=== PATIENT | male | born 1960 | race Caucasian/White ===

== ENCOUNTER 2024-09-07 17:49 | Inpatient (IN) | payer SELFPAY ==
[~2024-09-07] VITALS: Ht 172.7 cm; Wt 76.2 kg
[~2024-09-07 17:49] MED LIST: ASPI-1264 PO; CARV3.122 PO; FURO40TA4 PO; GABA300C PO; LISI2.5T14 PO; SPIR25TA5 PO
[2024-09-07] MEDS: NORepinephrine 8mg/ 250ml NS 250 ML IV PRN (18:07)
[2024-09-07 18:09] LABS: BASOPHILS # (AUTO) 0.1 X10'3 (0-0.2); BASOPHILS % (AUTO) 0.8 % (0-1); EOSINOPHILS # (AUTO) 0.1 X10'3 (0-0.9); EOSINOPHILS % (AUTO) 0.7 % (0-6); HEMATOCRIT 52.4 % (42.0-52.0); LYMPHOCYTES # (AUTO) 1.7 X10'3 (1.1-4.8); LYMPHOCYTES % (AUTO) 17.9 % (21-51); MEAN CORPUSCULAR HEMOGLOBIN 29.1 PG (27.0-31.0); MEAN CORPUSCULAR HGB CONC 32.4 g/dL (33.0-36.5); MEAN CORPUSCULAR VOLUME 89.8 FL (78-98); MEAN PLATELET VOLUME 8.1 FL (7.4-10.4); MONOCYTES # (AUTO) 0.8 X10'3 (0-0.9); NEUTROPHILS % (AUTO) 72.6 % (42-75); PLATELET COUNT 267 X10'3 (140-440); RED BLOOD COUNT 5.83 X10'6 (4.70-6.10); RED CELL DISTRIBUTION WIDTH 17.1 % (11.5-14.5); WHITE BLOOD COUNT 9.6 X10'3 (4.5-11.0)
[2024-09-07 18:28] LABS: ALANINE AMINOTRANSFERASE 76 U/L (12-78); ALBUMIN 3.5 G/DL (3.4-5.0); ALKALINE PHOSPHATASE 122 IU/L (46-116); ANION GAP 19 (8-16); ASPARTATE AMINO TRANSFERASE 79 U/L (10-37); BILIRUBIN,TOTAL 3.4 MG/DL (0.1-1.0); BLOOD UREA NITROGEN 39 MG/DL (7-18); BUN/CREATININE RATIO 16.3 (10.0-20.0); CALCIUM 8.7 MG/DL (8.5-10.1); CHLORIDE 102 MMOL/L (99-107); GLUCOSE 115 MG/DL (70-104); POTASSIUM 3.6 MMOL/L (3.5-5.1); SODIUM 140 MMOL/L (135-145); eCRCL 31 ML/MIN; eGFR 28 ML/MIN
--- NOTE | 2024-09-07 18:33 | Physician Documentation ---
History of Present Illness ~ Chief Complaint: ALOC Stated Complaint: NSTEMI Time Seen by MD: 18:27 Source: EMS HPI 64-year-old male no known medical history presenting for altered mental status. He was found down by his family. Unknown just downtime. Medication Reconciliation Allergies: Coded Allergies: No Known Allergies (Unverified , 09/07/24) Miscellaneous Medications Home Med List (No Home Medications), (Reported) Review of Systems Unable to obtain complete ROS: altered mental status Physical Exam Vital Signs: RN Vital Signs have been reviewed: Yes, Temperature: 99.8, Source: Bladder, Heart Rate: 107, Respiratory Rate: 35, BP: 114/96, Pulse Oximetry: 98, Weight: 77.270 Oxygen Flow Rate: 15.0 Physical Exam Toxic, ashen cyanotic Cardiopulmonary clear to auscultation bilaterally No murmur Right upper quadrant abdominal tenderness to palpation No guarding no rebound Lower extremity mottling Procedures Central Line Lumen: triple Central Line Procedure: betadine prep, sterile drapes applied, sterile dressing applied Position: subclavian (L) Anesthesia: local Complications: none Post Position: sutured, good blood return, position confirmed w/ CXR Tolerated Procedure Well?: yes, no complications Progress Progress Note Independently interpreted labs lactic acidosis Bedside ultrasound showing severe heart failure EF 10% 6:58 p.m. patient now on levo blood pressure improved he is now awake and alert and oriented. He is denying any chest pain or shortness of breath. He is com plaining of abdominal pain that has been ongoing the last several days. He is unable to have any bowel movement which is new for him 7:06 p.m. discussed with patient's son he is able to provide further history. He states that the patient has remote history of methamphetamine use and known history of heart failure. The patient's mother 3 months ago and ever since then the patient's son reports that he has been on a Marinelli not take care of himself not taking any medications and likely using methamphetamine Results/Orders Reviewed/noted all lab results: Yes Results/Orders Orders - LOGAN NESS MD Monitor (09/07/24 17:56) Saline Lock (09/07/24 17:56) Oxygen (09/07/24 17:56) Electrocardiogram (09/07/24 17:56) Culture Blood (09/07/24 17:56) Chest,Single View (09/07/24 17:56) Straight Cath For Urine Sample (09/07/24 17:56) Abg (Arterial Blood Gas) (09/07/24 17:56) Accucheck (09/07/24 ) * (A) Hutchinson- Protocol * Q12H@07,19 (09/07/24 18:19) Ultrasound Of Abdomen (09/07/24 18:30) Echocardiogram (09/07/24 ) Ct Chest Abdomen Pelvis (09/07/24 18:31) Completed Orders - LOGAN NESS MD Cbc/Diff (09/07/24 17:56) PBNP (09/07/24 17:56) CMP (09/07/24 17:56) Hs Troponin I W Calculations (09/07/24 17:56) Hs Troponin I W Calculations (09/07/24 19:56) Hs Troponin I W Calculations (09/07/24 20:56) Chest,Single View (09/07/24 17:56) Procalcitonin (09/07/24 17:56) BMP (09/07/24 17:56) Lacticsepsis (09/07/24 17:56) CK (09/07/24 17:56) Drug Screen, Urine (09/07/24 17:56) Norepinephrine 8mg/ 250ml Ns (Norepineph (09/07/24 18:05) Normal Saline 1000ml (Sodium Chloride 10 (09/07/24 18:22) Ultrasound Of Abdomen (09/07/24 18:30) Echocardiogram (09/07/24 ) Ct Chest Abdomen Pelvis (09/07/24 18:31) Lactic,2hr (09/07/24 19:40) Lipase (09/07/24 17:58) Ua W/Microscopic, Cult If Ind (09/07/24 19:15) Vital Signs 09/07/24 09/07/24 09/07/24 09/07/24 17:53 18:07 18:23 18:32 Temp 99.8 Pulse 115 107 Resp 35 B/P (MAP) 87/73 114/96 (102) Pulse Ox 98 98 O2 Delivery Non-Rebreather O2 Flow Rate 16 15.0 FiO2 N/A 09/07/24 18:44 Resp 19 B/P (MAP) Laboratory Tests Test 09/07/24 17:58 09/07/24 18:02 09/07/24 18:46 09/07/24 19:15 White Blood Count 9.6 Red Blood Count 5.83 Hemoglobin 17.0 Hematocrit 52.4 H Mean Corpuscular Volume 89.8 Mean Corpuscular Hemoglobin 29.1 Mean Corpuscular Hemoglobin Concent 32.4 L Red Cell Distribution Width 17.1 H Platelet Count 267 Mean Platelet Volume 8.1 Neutrophils (%) (Auto) 72.6 Lymphocytes (%) (Auto) 17.9 L Monocytes (%) (Auto) 8.0 Eosinophils (%) (Auto) 0.7 Basophils (%) (Auto) 0.8 Neutrophils # (Auto) 7.0 Lymphocytes # (Auto) 1.7 Monocytes # (Auto) 0.8 Eosinophils # (Auto) 0.1 Basophils # (Auto) 0.1 CBC Comment Sodium Level 140 Potassium Level 3.6 Chloride Level 102 Carbon Dioxide Level 19.0 L Anion Gap 19 H Blood Urea Nitrogen 39 H Creatinine 2.40 H Estimated GFR/1.73 m2 28 BUN/Creatinine Ratio 16.3 Glucose Level 115 H Lactic Acid Level 9.4 *H Calcium Level 8.7 Total Bilirubin 3.4 H Aspartate Amino Transf (AST/SGOT) 79 H Alanine Aminotransferase (ALT/SGPT) 76 Alkaline Phosphatase 122 H Total Creatine Kinase 192 Troponin I High Sensitivity 139 *H Pro-B-Type Natriuretic Peptide 27495 H Total Protein 7.0 Albumin 3.5 Globulin 3.5 Albumin/Globulin Ratio 1.0 L Lipase 24 Procalcitonin 0.27 Chemistry Comments Glucometer 95 Blood Gas Specimen Type Arterial Blood Gas Puncture Site Rr O2 Saturation 99.6 H Arterial Blood pH (Temp corrected) 7.321 L Arterial Blood pCO2 (Temp correct) 26.1 L Arterial Blood pO2 (Temp corrected) 318.3 *H Arterial Blood PO2/FiO2 Ratio 3.13 Arterial Blood HCO3 13.0 L Arterial Blood Base Excess -10.5 L Arterial Blood Oxyhemoglobin 99.1 H Arterial Blood Carboxyhemoglobin 0.3 L Arterial Blood Methemoglobin 0.2 Arterial Blood Deoxyhemoglobin 0.4 Juan Manuel Test Modified Blood Gas Hemoglobin 17.2 Blood Gas Temperature 38.1 Blood Gas Modality Nrb FiO2 100.0 Blood Gas Critical Value Called To Dr. arceo Urine Specimen Description Hutchinson cath Urine Color Yellow Urine Clarity Slightly cloudy Urine pH 6.0 Urine Specific Almond >=1.030 Urine Protein >=300 H Urine Glucose (UA) 100 H Urine Ketones Trace H Urine Occult Blood Large H Urine Nitrite Negative Urine Bilirubin Moderate Urine Urobilinogen 4.0 H Urine Leukocyte Esterase Negative Urine RBC Tntc Urine WBC 5-10 H Urine Squamous Epithelial Cells Few Urine Amorphous Urates 1+ Urine Bacteria 2+ Urine Hyaline Casts 0-3 Urine Mucus Urine Culture Indicated Indicated Volume Urine Centrifuged 10 ml Urine Comment Urine Opiates Screen Negative Urine Methadone Screen Negative Urine Fentanyl Screen Negative Urine Barbiturates Screen Negative Urine Phencyclidine Screen Negative Urine Amphetamines Screen Positive Urine Benzodiazepines Screen Negative Urine Cocaine Screen Negative Urine Cannabinoids Screen Negative Drug Screen Comment Test 09/07/24 19:36 Troponin I High Sensitivity 139 *H Troponin I High Sens Percent Delta 0 Troponin I Hi Sens Absolute Change 0 Microbiology Date/Time Source Procedure Growth Status 09/07/24 18:17 Blood Iv Start Blood Culture - Preliminary NEGATIVE (LESS THAN 24 HOURS) Resulted EKG/XRAY/CT/US/VASC/MRI EKG : Additional Comment EKG independently interpreted by myself [id number] indication altered mental status Sinus tachycardia with interventricular conduction delay, anterior ST-elevation Medical Decision Making Findings CARE THE PATIENT WAS TRANSFERRED TO NE FROM DR. NESS AT 6:50 P.M.. PATIENT IS CRITICALLY ILL SECONDARY TO SEVERE ACUTE ON CHRONIC SYSTOLIC HEART FAILURE. PATIENT HAS RECEIVED ZOSYN IV ANTIBIOTICS FOR POSSIBLE SEPSIS. PATIENT WAS GIVEN 1 L OF NORMAL SALINE. PATIENT IS ALSO ON A LEVOPHED DRIP AND HAS A CENTRAL LINE. 7:45 P.M.: CASE DISCUSSED WITH THE BLOOD BANK ASSISTANT. HE WILL SEE AND ADMIT THE PATIENT. 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 mechanic Admission Level of Care: Critcal Care Impression: Primary Impression: Systolic heart failure Qualified Codes: I50.23 - Acute on chronic systolic (congestive) heart failure Additional Impressions: Metabolic encephalopathy Renal failure Qualified Codes: N17.9 - Acute kidney failure, unspecified Referrals: NO PRIMARY CARE PROVIDER (PCP) Education Educated: Patient Educated regarding: diagnosis, treatment Critical Care Note Total Time (mins): 45 Critical Care Note The very real possibility of a deterioration of this patient's condition required the highest level of my preparedness for sudden, emergent intervention. I provided critical care services, which included medication orders, frequent reevaluations of the patient's condition and response to treatment, ordering and reviewing test results, and discussing the case with various consultants. Excludes time spent performing separately billable procedures. The critical care time associated with the care of the patient was 45 minutes in the management of cardiogenic shock Signature Scribe Signature: NO SCRIBE Attestation: NO LOGAN CANTU MD September 07, 2024 18:33 ROBBI STEEL MD September 07, 2024 20:19
[2024-09-07 18:34] LABS: CREATINE KINASE 192 U/L (39-308); PRO BRAIN NATRIURETIC PEPTIDE 20282 PG/ML (0-125)
[2024-09-07] MEDS: normal saline 1000ml 1,000 ML IV STA (18:35)
[2024-09-07 18:50] LABS: ABG BASE EXCESS -10.5 mmol/L (-2.0-3.0); ABG OXYGEN SATURATION 99.6 % (94.0-98.0); ABG PCO2 (T) 26.1 mmHg (35.0-48.0); ABG PH (T) 7.321 (7.350-7.450); ABG PO2 (T) 318.3 mmHg (83.0-108.0); ALLEN'S TEST Modified; FCOHb 0.3 % (0.5-1.5); FHHb 0.4 % (0.0-5.0); FMetHb 0.2 % (0.0-1.5); FO2Hb 99.1 % (94.0-98.0); MODE NRB; PATIENT TEMPERATURE 38.1; TOTAL HEMOGLOBIN 17.2 G/dl (13.5-17.5)
--- NOTE | 2024-09-07 18:55 | RADIOLOGY REPORT ---
EXAM: DI CHEST,SINGLE VIEW REASON FOR EXAM: CP TECHNIQUE: 1 view of the chest COMPARISON: None FINDINGS/IMPRESSION: LUNGS: Central pulmonary vascular congestion. Peripheral interstitial edema. MEDIASTINUM: Mild cardiomegaly. BONES: No acute osseous abnormality OTHER: Left internal jugular central venous catheter extending into the left brachiocephalic vein
--- NOTE | 2024-09-07 19:38 | HISTORY AND PHYSICAL ---
History & Physical - Short Providers to CC ~ History of Present Illness Chief Complain & History Patient is a 64 year old male with history of heart disease came to the hospital with shortness of breath and abdominal pain. In the ER he was hypotensive with systolic blood pressure of 60s and receive one liter of normal saline and started on levophed. Patient stated that he has not taken his medications for over a year. Patients smokes meth. In the ER had lactate acid of 9.4 and BNP of 20,000 . stat echocardiogram showed EF of 5%. Patient had central line in the left subclavian placed and has a Hutchinson catheter with minimal urine output. He has received zosyn.ABGis 7.32/ and PCT is negative. Allergies: Coded Allergies: No Known Allergies (Unverified , 09/07/24) Family History Patient History: Patient reports no known family medical history. Exam Last recorded Lab results: 09/07/24 1758 09/07/24 1758 Vitals: Vital Signs Date Time Temp Pulse Resp B/P (MAP) Pulse Ox O2 Delivery O2 Flow Rate FiO2 09/07/24 18:44 19 09/07/24 18:32 99.8 107 98 15.0 09/07/24 18:23 Non-Rebreather N/A Other: He is AAO, NAD. Advance Care Planning Advanced Care planning: Add on additional 30 min Problem\Assessment\Plan Additional Plan A/ -Acute decompensation of HFrEF. LVEF is 5% -Shock: likely cardiogenic: r/o sepsis although less likely -Oliguric WALLY: -Meth abuse -Elevated lactate: 9.4 -Abdominal pain -Medical non compliance P/ -admit to the ICU -Levophed and keep MAP>65 -Consider adding Dobutamine -follow up on the abdominal ultrasound -obtain UA -monitor the renal function, urine output and electrolytes -continue zosyn -follow up on the cultures including blood cultures and urine culture -check lipase -PPI -Hep SC -Cardiology consult in am -Trend Trop and lactate Patient was seen through remote audio-visual assessment through HIPAA compliant setup. All labs, flow sheets and images reviewed and discussed by the bedside nurse who was present during the visit. CC time 60 minutes. JYOTI NEFF MD September 07, 2024 19:38
[2024-09-07] MEDS: piperacillin/tazo 4.5gm/100ml 100 ML IV STA (19:39)
[2024-09-07] MEDS ORDERED: ondansetron/PF 4mg/2ml inj IV PRN (19:40)
[2024-09-07] MEDS: LidoCAINE 2% Topical Jelly 11mL syringe (UROJET) TOP ONE (19:43)
[2024-09-07 20:25] LABS: BILIRUBIN,URINE MODERATE (Neg); CLARITY,URINE SLIGHTLY CLOUDY (Clear); COLOR,URINE YELLOW (Yellow); GLUCOSE, URINE 100 mg/dl (Neg); KETONES,URINE TRACE mg/dl (Neg); LEUKOCYTE ESTERASE ,URINE NEGATIVE (Neg); OCCULT BLOOD,URINE LARGE (Neg); PROTEIN,URINE >=300 mg/dl (Neg)
[2024-09-07 20:27] LABS: LIPASE 24 U/L (16-77)
[2024-09-07 20:32] LABS: NITRITES, URINE NEGATIVE (Neg); UA COLLECTION TYPE FOLEY CATH
[2024-09-07 20:36] LABS: AMORPHOUS URATES 1+; BACTERIA,URINE 2+ /HPF (Neg); HYALINE CASTS 0-3 /LPF (NEGATIVE); RBC,URINE TNTC /HPF (0-2); SQUAMOUS EPITHELIAL CELL,UR FEW /LPF (FEW)
[2024-09-07 20:38] LABS: URINE AMPHETAMINE SCREEN POSITIVE (Neg); URINE BARBITUATE SCREEN NEGATIVE (Neg); URINE BENZODIAZEPINES SCREEN NEGATIVE (Neg); URINE CANNABINOID SCREEN NEGATIVE (Neg); URINE COCAINE SCREEN NEGATIVE (Neg); URINE METHADONE SCREEN NEGATIVE (Neg); URINE OPIATE SCREEN NEGATIVE (Neg); URINE PHENCYCLIDINE SCREEN NEGATIVE (Neg)
[2024-09-07] MEDS ORDERED: NO HOME MEDS (21:00)
--- NOTE | 2024-09-07 21:14 | RADIOLOGY REPORT ---
EXAM: CT CT CHEST ABDOMEN PELVIS INDICATION: abdominal pain TECHNIQUE: Volumetric multidetector CT images of the chest, abdomen and pelvis were obtained after th e administration of IV contrast. All CT scans at this facility use dose modulation, iterative reconst ruction, and/or weight based dosing when appropriate to reduce radiation dose to as low as reasonably achievable. COMPARISON: None FINDINGS: Chest: The thyroid gland is unremarkable. There is air within the venous structures of the anterior lower n shirley and upper chest and within the left brachiocephalic vein. Left-sided subclavian approach central venous catheter is noted terminating over the proximal SVC. Minimal nondependent air within the right ventricle. Moderate cardiomegaly. No evidence of aortic aneurysm. Mild dilatation of the pulmonary trunk up to 3 3 mm which may be seen with pulmonary arterial hypertension. Mediastinal lymphadenopathy measuring up to 1 cm which may be reactive/neoplastic. No pneumothorax. Trace right-sided pleural effusion. Mild emphysematous changes of bilateral lungs. d ependent and Scattered bilateral lung atelectasis. Patchy ground-glass opacities of bilateral upper lobes. Calcified granuloma within the right middle lobe. Minimal body wall edema. No destructive osseous lesions are noted. Abdomen and pelvis: Hyperplasia of the left adrenal gland. Otherwise, Liver, spleen, and adrenal glands are unremarkable . There is gallbladder wall thickening with pericholecystic edema. Possible sludge within the gallbla dder. Trace ascites limits evaluation for acute pancreatitis. There is bilateral perinephric fat stranding. No hydronephrosis bilaterally. Urinary bladder is decom pressed with Hutchinson catheter in place. Focus of air within the Urinary bladder which is most likely i atrogenic. Prostate measures 3 x 3.6 x 3 cm. Mild gastric wall thickening. Mild wall Thickening of proximal small bowel loops. The remainder of th e small bowel loops unremarkable. Appendix is not definitely visualized. Moderate to large amount of fecal material within the colon. Wall thickening of the ascending colon with rectal wall thickening. Trace ascites. No evidence of intraperitoneal free air. No evidence of aortic aneurysm. Mild atherosclerotic calcification of the aorta and bilateral iliacs. No significant lymphadenopathy. Mild body wall edema. Moderate right hydrocele. No destructive osseous lesions noted. IMPRESSION: Mild body wall edema. Patchy ground-glass Opacities of bilateral upper lobes which may represent infectious/ inflammatory p rocess. Mild emphysematous changes of the lungs with trace right-sided pleural effusion and scattered bilater al lung atelectasis. Wall thickening of the ascending colon and rectum. Correlate for colitis. Moderate to large amount of fecal material within the colon. Trace ascites. Sludge within the gallbladder with gallbladder wall thickening and significant pericholecystic edema. If there is concern for acute cholecystitis, right upper quadrant ultrasound should be considered fo r further evaluation. Moderate right-sided hydrocele. Additional findings as above.
[2024-09-07 22:15] VITALS: BP 133/64; PULSE 106; RESP 12; O2SAT 100
--- NOTE | 2024-09-07 22:40 | RADIOLOGY REPORT ---
Clinical History abdominal pain Comparison None Technique: Standard grayscale images were acquired in multiple planes with additional Doppler interro gation when appropriate. Without Contrast DARRIUS SUKHJINDER, [id number] Findings: Liver: No mass or ductal dilatation. course echotexture of the liver. Gallbladder: shadowing echogenic focus in the gallbladder 3 x 4 mm. No gallstones. wall thickening w ith pericholecystic fluid. Common bile duct: Within normal limits. Right kidney: No kidney stone or hydronephrosis. Pancreas: obscured by bowel gas Impression: 1. Echogenic nonshadowing focus in the gallbladder suggesting sludge/polyp measures 3 x 4 mm. Gallb ladder wall thickening with mild pericholecystic edema. 2. No kidney stone or hydronephrosis 3. Coarse echotexture of the liver. Slightly nodular contour suggests cirrhosis This report was electronically signed by Janis La MD on 09/07/2024 10:37:37 PM.
[2024-09-07] MEDS: acetaminophen 325mg tablet PO PRN (22:54)
[2024-09-07 23:00] VITALS: BP 121/88; PULSE 112; RESP 16; RESP 18; O2SAT 97; O2SAT 99
[2024-09-07 23:35] LABS: MAGNESIUM 2.5 MG/DL (1.5-2.4); PHOSPHORUS 6.3 MG/DL (2.3-4.5)
[2024-09-08] VITALS (23 sets, daily range): BP systolic 93–132; BP diastolic 51–89; PULSE 86–105; RESP 12–24; TEMP 97; O2SAT 94–100
--- NOTE | 2024-09-08 00:20 | CARDIOLOGY REPORT ---
APPROVED REPORT EXAM: Comprehensive 2D, Doppler, and color-flow Echocardiogram. Patient Location: ER RM 4 Blood Pressure: 98/67 mmHg Heart Rate: 104 bpm Indications NSTEMI Shortness of Breath Troponin: 139 PROBNP: Levophed at 0.1 mcg/kg/min NO DELICATESSEN MANAGER Previous ECHO: 03/15/2014, [facility], RO, EF: 50-55; sevLAE; modRAE; mMR/TR 2D Dimensions LA Diam5.5 cm IVSd 0.7 (0.7-1.1cm) LVDd 7.5 cm PWd 1.1 (0.7-1.1cm) RA Major6.6 cmIVSs 0.8 (0.8-1.2cm) RA Minor6.4 cmLVDs 7.5 (2.5-4.0cm) PWs 1.2 (0.8-1.2cm) LVOT Diameter 2.00 (1.8-2.4cm) LVEF(%) 2.7 (>50%) Ao Asc Diam.2.80 cm IVC 24.89 mmFS (%) 1.2 % SV 8.3 ml CO 0.9 L/min M-Mode Dimensions Left Atrium(MM) 5.61 (2.5-4.0cm) Aortic Root 2.61 (2.2-3.7cm) Aortic Cusp Exc 1.91 (1.5-2.0cm) MV EPSS 2.3 (<0.5cm) Aortic Valve AoV Peak Jass. 92.5 cm/s AoV VTI 9.5 cm AO Peak GR. 3.4 mmHg AO Mean GR. 2 mmHg LVOT VTI 7.10 cm LVOT Peak Jass. 60.5 cm/s ANGELA(VTI)/BSA 2.35 cm2/m2 ANGELA (VTI) 2.35 cm2 TDI Lateral E' P. V10.90 cm/s Pulmonary Valve PAEDP11.26 mmHg Tricuspid Valve TR P. Velocity 311 cm/s RAP ESTIMATE 10 mmHg TR Peak Gr. 39 mmHg RVSP 49 mmHg LEFT VENTRICLE Left ventricle is severely dilated with normal wall thickness. Overall systolic function is severely decreased. LVEF is approximately 10% with administration os Levophed at 0.1 mcg/kg/min. RIGHT VENTRICLE Right ventricle is mildly dilated with reduced function. ATRIA Left atrium is severely dilated. Right atrium is moderately dilated. AORTIC VALVE Trileaflet AV appears mildly sclerotic without stenosis. Trivial insufficiency. MITRAL VALVE Mitral valve leaflets are moderately thickened without stenosis. Severe regurgitation. TRICUSPID VALVE The tricuspid valve is normal in structure with moderate regurgitation. PULMONIC VALVE The pulmonary valve is normal in structure with physiologic insufficiency. GREAT VESSELS The aortic root is normal in size. The ascending aorta is normal in size. IVC is dilated and collapse s less than 50% with inspiration. PERICARDIUM Normal pericardium. No effusion. Other Information Study Quality: Adequate Conclusion Left ventricle is severely dilated with normal wall thickness. Overall systolic function is severely decreased. LVEF is approximately 10% with administration os Levophed at 0.1 mcg/kg/min. Right ventricle is mildly dilated with reduced function. Left atrium is severely dilated. Right atrium is moderately dilated. Trileaflet AV appears mildly sclerotic without stenosis. Trivial insufficiency. Mitral valve leaflets are moderately thickened without stenosis. Severe regurgitation. The tricuspid valve is normal in structure with moderate regurgitation. The pulmonary valve is normal in structure with physiologic insufficiency. Normal pericardium. No effusion.
[2024-09-08] MEDS ORDERED: NORepinephrine 8mg/ 250ml NS 250 ML IV PRN ×2 (00:35→00:36)
[2024-09-08 03:23] LABS: BASOPHILS % (AUTO) 0.2 % (0-1); EOSINOPHILS % (AUTO) 0 % (0-6); HEMATOCRIT 48.3 % (42.0-52.0); HEMOGLOBIN 15.6 g/dl (14.0-17.9); LYMPHOCYTES # (AUTO) 0.7 X10'3 (1.1-4.8); MEAN CORPUSCULAR HEMOGLOBIN 28.5 PG (27.0-31.0); MEAN CORPUSCULAR HGB CONC 32.4 g/dL (33.0-36.5); MEAN CORPUSCULAR VOLUME 87.9 FL (78-98); MEAN PLATELET VOLUME 8.7 FL (7.4-10.4); MONOCYTES # (AUTO) 0.8 X10'3 (0-0.9); MONOCYTES % (AUTO) 7.5 % (2-12); NEUTROPHILS # (AUTO) 9.7 X10'3 (1.8-7.7); NEUTROPHILS % (AUTO) 86.3 % (42-75); PLATELET COUNT 240 X10'3 (140-440); RED CELL DISTRIBUTION WIDTH 16.1 % (11.5-14.5); WHITE BLOOD COUNT 11.2 X10'3 (4.5-11.0)
[2024-09-08 03:40] LABS: ALANINE AMINOTRANSFERASE 189 U/L (12-78); ALBUMIN/GLOBULIN RATIO 1.1 (1.1-1.5); ALKALINE PHOSPHATASE 105 IU/L (46-116); ANION GAP 16 (8-16); ASPARTATE AMINO TRANSFERASE 287 U/L (10-37); BILIRUBIN,TOTAL 2.6 MG/DL (0.1-1.0); BLOOD UREA NITROGEN 44 MG/DL (7-18); BUN/CREATININE RATIO 21.5 (10.0-20.0); CALCIUM 8.3 MG/DL (8.5-10.1); CHLORIDE 105 MMOL/L (99-107); CREATININE 2.05 MG/DL (0.60-1.10); GLUCOSE 105 MG/DL (70-104); MAGNESIUM 2.4 MG/DL (1.5-2.4); PHOSPHORUS 6.2 MG/DL (2.3-4.5); POTASSIUM 3.4 MMOL/L (3.5-5.1); SODIUM 142 MMOL/L (135-145); TOTAL CARBON DIOXIDE 20.9 MMOL/L (24-32); TOTAL PROTEIN 5.8 G/DL (6.4-8.2); eCRCL 36 ML/MIN; eGFR 33 ML/MIN
[2024-09-08] MEDS: potassium Cl 20 mEq SR tablet PO ONE (04:31)
[2024-09-08] MEDS: heparin, porcine 5000 units/ml vial SQ SCH (08:00)
[2024-09-08] MEDS ORDERED: doxycycline inj 100 MG in normal saline 100ml IV soln 100 ML IV SCH (08:00)
--- NOTE | 2024-09-08 08:02 | ELECTROCARDIOGRAPH REPORT ---
[facility] Test Date: 2024-09-07 Test Time: 17:52:23 Pat Name: SUKHJINDER RIZO Department: EMERGENCY ROOM [id number] Room: [place] [address] Gender: M Media Marketing Specialist: KATIE : 1960 Requested By: LOGAN NESS Order Number: [id number] Reading MD: Dr. Fabiano Barrientos Measurements Intervals [place] Rate: 117 P: -72 ND: 100 QRS: 242 QRSD: 165 T: -30 QT: 391 QTc: 546 Interpretive Statements Sinus or ectopic atrial tachycardia Nonspecific IVCD with LAD Extensive anterior infarct, acute (LAD) Electronically Signed On 09-09-2024 11:01:[address] Fabiano Barrientos Please click the below link to view image of tracing.
--- NOTE | 2024-09-08 10:45 | PROGRESS NOTE ---
Subjective Subjective Patient is seen today. Awake alert and in no apparent distress. He is on 2 L of oxygen per minute nasal cannula with a pulse oximetry reading of 92-93%. Reason for visit: Pulmonary critical care follow-up Reviewed: Care Plan, H&P, Labs, Radiology Review of Systems Changes from previous H/P or p: No Changes Daily Progress Note Exam Vitals Vital Signs Date Time Temp Pulse Resp B/P (MAP) Pulse Ox O2 Delivery O2 Flow Rate FiO2 09/08/24 09:00 98.6 89 23 115/77 (90) 95 Nasal Cannula 1.0 09/07/24 18:23 N/A Result Diagram: 09/08/24 0146 09/08/24 0146 Exam HEENT:NC/AT PERRLA,EOMI Chest:Symmetric expansion Lungs:CTA b/l Pulm:CTA b/l CV :Nl S1/S2 Gallop Abdomen:Non tender Extr:No c/c/e VTE VTE Risk Score VTE Risk Score Reference Ranges: Score 0-1 = Low Risk (Aggressive mobilization; early ambulation; no VTE prophylaxis required) Score 2: Moderate Risk (Intermittent/Pneumatic Compression Device OR Lovenox/Heparin/Coumadin) Score 3-4: High Risk (Intermittent/Pneumatic Compression Device AND Lovenox/Heparin/Coumadin) Score > or = 5: Highest Risk (Intermittent/Pneumatic Compression Device AND Lovenox/Heparin/Coumadin) Assessment/Plan Plan Non-STEMI Cardiogenic shock: Now weaned off norepinephrine drip. Cardiomyopathy with an EF of 10%: He reports that he has not been taking his medications Severe mitral regurgitation HFr EF: Chest x-ray suggesting acute CHF. Lactic acidosis due to low flow state, doubt sepsis. Amphetamine user Abdominal ultrasound showing pericholecystic fluid: Doubt cholecystitis. Gallbladder sludge/polyp Transaminitis most likely due to hypotension i.e. low-flow state. Plan Cardiology consultation Lifestyle modifications discussed with and patient regarding cessation of the recreational use of amphetamines Afterload reduction with SUHA inhibitor, hydralazine/nitrates, arbs recommended once stable. Beta jacques use also recommended once patient is more stable. Follow liver enzymes Consult with General surgery for gallbladder sludge/polyp. Prophylaxis: Heparin 5000 units subcutaneously q.12 hours. Overall prognosis: Guarded Critical care time 35 minutes. SHINE OJHNSTON MD September 08, 2024 10:45
[2024-09-08] MEDS: furosemide 40mg/4ml inj IV SCH (13:31)
[2024-09-08 15:06] LABS: CREATININE 1.79 MG/DL (0.60-1.10); POTASSIUM 3.4 MMOL/L (3.5-5.1); eCRCL 41 ML/MIN; eGFR 39 ML/MIN
[2024-09-08] MEDS ORDERED: potassium Cl 40MEQ/1/2NS 520ml 520 ML IV PRN (15:20)
[2024-09-08] MEDS ORDERED: potassium Cl 20 mEq SR tablet PO PRN (15:20)
--- NOTE | 2024-09-08 16:26 | CONSULTATION REPORT - RESIDENT ---
Consult Providers to CC Resident Creating Document: EMMANUELREGIS BRITTONDAVID SALDIVAR History of Present Illness Reason for Admit\Complaint: Shortness of breaths History of Present Illness He is a 64-year-old male with a past medical history of cardiomyopathy with heart failure with reduced ejection fraction, methamphetamine use presented to the ER with shortness of breathe. Endorses shortness of breathe, class four NYHA, associated with orthopnea and PND and reports that he could not able to catch hold of the breathe. Complained of abdominal pain, right upper part of the abdomen. He reports that he took 4 Lasix pills. Reports swelling of bilateral legs and he feels heaviness in the lower legs as if it is like a 400 lb weight pressure. 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 He reports smoking methamphetamine on most of the days in a week. He denied chest pain, fever, cough, wheeze, abdominal distention, facial puffiness, palpitations. Course in the ER(per night guard range note): he was hypotensive with systolic blood pressure of 60s and receive one liter of normal saline and started on levophed. In the ER had lactate acid of 9.4 and BNP of 20,000 . stat echocardiogram showed EF of 5%. Patient had central line in the left subclavian placed and has a Hutchinson catheter with minimal urine output. He has received zosyn.ABGis 7.32//318 and PCT is negative. Weaned off norepinephrine drip&downgraded to PCU by ICU team. Allergies: Coded Allergies: No Known Allergies (Unverified , 09/07/24) Home Medications Home Medications Active Reported No Home Medications (Home Med List) Each Spironolactone 25 Mg Tablet 1 Tab PO DAILY Lisinopril 2.5 Mg Tablet 1 Tab PO DAILY Carvedilol 3.125 Mg Tablet 1 Tab PO BID Furosemide 40 Mg Tablet 1 Tab PO BID Aspirin* (Aspirin) 325 Mg Tablet 1 Tab PO QPM Neurontin (Gabapentin) 300 Mg Capsule 1 Cap PO QPM Past Medical History Past Medical History Heart failure with reduced ejection fraction Methamphetamine use Cervical and lumbar strain History of osteomyelitis History of metabolic encephalopathy COVID-19 Nicotine dependence Osteoarthritis Hernia Past Surgical History Surgical History Comment 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 Cagle on 04/28/2021) Removal of dislodged foreign body in left hand Hernia repair Family History Family History: Patient reports no known family medical history. Past Social History Social History Comment Smokes methamphetamine Smoking cigarettes(not sure about how many cigarettes) Denied alcohol. Lives in home ROS ROS Reviewed in full and negative except positive pertinent as in the HPI Exam Vitals: Vital Signs Date Time Temp Pulse Resp B/P (MAP) Pulse Ox O2 Delivery O2 Flow Rate FiO2 09/08/24 16:00 99.1 87 18 118/78 (91) 97 Nasal Cannula 1.0 09/07/24 18:23 N/A General: Physical Exam General: Alert, awake, oriented to time place person. Not in acute distress. HEENT: No pallor, no icterus. Jugular venous distention is seen No carotid upstroke, Cardiovascular system: Regular rate and rhythm. First and second heart sound are heard. Pansystolic murmur is present in mitral area two to 3/6 intensity. PSM and tricuspid area 2/6. No rubs Respiratory system: Bilateral vesicular breath sounds are heard. Bilateral basal crepitations present. No expiratory wheezing Gastrointestinal: Tender hepatomegaly is present. 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 Blood pressure is in 120s. WBC counts are elevated. Lactic acid is elevated 3.9 on yesterday and troponins were mildly elevated [place] 140[place] [address]. Chest x-ray showing cardiomegaly and bilateral pulmonary congestion Echocardiogram showed cardiomyopathy with left ventricle ejection fraction of 10%, RVSP of 49. Received norepinephrine, Zosyn, IV normal saline 1 L bolus and discontinued Zosyn and norepinephrine Started on Lasix 40 mg p.o. daily in view of On home medications of aspirin, carvedilol, Lasix, gabapentin, lisinopril, spironolactone We started carvedilol 2.5 mg, spironolactone 25 mg on today and lisinopril 2.5 mg p.o. daily on tomorrow morning we will hold for low blood pressures. 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 On thiamine, folic acid, multivitamin 6)Peripheral neuropathy On gabapentin 300 mg daily dose but in view of EGFR 40, started on 100 mg of gabapentin 7)Troponinemia likely secondary to NSTEMI versus type 2 [place] Troponins are elevated in 140s EKG showed sinus tachycardia. And it could be due to type 2 [place] secondary to cardiomyopathy with acute on chronic CHF 8)WALLY, prerenal Hypokalemia Hyperphosphatemia High anion gap metabolic acidosis With IV fluid resuscitation and norepinephrine, serum creatinine trended down to 1.79 from 2.4. Metabolic Acidosis is improving. Continue to monitor CMP Patient may need the audio narrator consultation 9)Acute metabolic encephalopathy His mentation got improved. we think that acute metabolic encephalopathy is likely secondary to WALLY, metabolic acidosis, acute on chronic advanced heart failure. 10)Hyperbilirubinemia 11) Hyperbilirubinemia We thought differentials of hyperbilirubinemia and cholecystitis as acute CHF versus viral hepatitis Ultrasound abdomen CT abdomen suggests in favor of acalculous cholecystitis. We ordered the hepatitis-B and C panel in view of heavy IV methamphetamine use Code status: Full code Diet: Heart healthy diet PT: Ordered [place] [facility] resident Date of Service: September 08, 2024 Billing Provider: RODERICK MILLER MD Common Visit Codes: 54047-ACDLBNL INP/OBS CARE (HIGH) [facility] [facility], DAVID September 08, 2024 16:26 RODERICK MILLER MD September 08, 2024 19:43
[2024-09-08] MEDS: MULTIVIT-MIN/FERROUS GLUCONATE 9 MG/15 ML LIQUID PO SCH (17:05)
[2024-09-08] MEDS: thiamine 100mg tablet PO ONE (17:05)
[2024-09-08] MEDS: folic acid 1mg tablet PO ONE (17:05)
[2024-09-08] MEDS: sevelamer carbonate 0.8gm powder pkt PO SCH (17:09)
[2024-09-08] MEDS: K and/or MAG REPLACEMENT MC SCH (20:00)
[2024-09-08] MEDS: carVEDilol 3.125mg tablet PO SCH (20:00)
[2024-09-08] MEDS: spironolactone 25 MG tablet PO SCH (20:30)
[2024-09-08] MEDS: potassium Cl 20 mEq SR tablet PO PRN (22:16)
[2024-09-08] MEDS: gabapentin 100mg capsule PO SCH (22:17)
[2024-09-09] VITALS (7 sets, daily range): BP systolic 92–111; BP diastolic 53–90; PULSE 63–104; RESP 15–23; TEMP 97.2–99.6; O2SAT 94–100
[2024-09-09 07:37] LABS: BASOPHILS # (AUTO) 0.1 X10'3 (0-0.2); BASOPHILS % (AUTO) 0.8 % (0-1); EOSINOPHILS # (AUTO) 0.2 X10'3 (0-0.9); EOSINOPHILS % (AUTO) 2.8 % (0-6); HEMATOCRIT 46.7 % (42.0-52.0); HEMOGLOBIN 15.5 g/dl (14.0-17.9); LYMPHOCYTES # (AUTO) 1.3 X10'3 (1.1-4.8); LYMPHOCYTES % (AUTO) 14.6 % (21-51); MEAN CORPUSCULAR HEMOGLOBIN 28.9 PG (27.0-31.0); MEAN CORPUSCULAR HGB CONC 33.1 g/dL (33.0-36.5); MEAN CORPUSCULAR VOLUME 87.2 FL (78-98); MEAN PLATELET VOLUME 8.2 FL (7.4-10.4); MONOCYTES # (AUTO) 0.8 X10'3 (0-0.9); MONOCYTES % (AUTO) 8.5 % (2-12); NEUTROPHILS # (AUTO) 6.6 X10'3 (1.8-7.7); NEUTROPHILS % (AUTO) 73.3 % (42-75); PLATELET COUNT 218 X10'3 (140-440); RED BLOOD COUNT 5.35 X10'6 (4.70-6.10); RED CELL DISTRIBUTION WIDTH 15.9 % (11.5-14.5)
[2024-09-09] MEDS: lisinopril 2.5mg tablet PO SCH (08:00)
[2024-09-09 08:07] LABS: ALANINE AMINOTRANSFERASE 200 U/L (12-78); ALBUMIN 2.5 G/DL (3.4-5.0); ALBUMIN/GLOBULIN RATIO 0.9 (1.1-1.5); ALKALINE PHOSPHATASE 93 IU/L (46-116); ANION GAP 8 (8-16); ASPARTATE AMINO TRANSFERASE 180 U/L (10-37); BILIRUBIN,TOTAL 1.3 MG/DL (0.1-1.0); BLOOD UREA NITROGEN 41 MG/DL (7-18); BUN/CREATININE RATIO 26.8 (10.0-20.0); CALCIUM 7.7 MG/DL (8.5-10.1); CHLORIDE 104 MMOL/L (99-107); CREATININE 1.53 MG/DL (0.60-1.10); GLUCOSE 100 MG/DL (70-104); MAGNESIUM 2.1 MG/DL (1.5-2.4); PHOSPHORUS 2.2 MG/DL (2.3-4.5); POTASSIUM 3.3 MMOL/L (3.5-5.1); SODIUM 139 MMOL/L (135-145); TOTAL CARBON DIOXIDE 26.6 MMOL/L (24-32); TOTAL PROTEIN 5.3 G/DL (6.4-8.2); eCRCL 48 ML/MIN; eGFR 46 ML/MIN
--- NOTE | 2024-09-09 17:25 | PROGRESS NOTE- Residence ---
Progress Note - Resident Providers to CC Resident Creating Document: GAYE BRENNER RES ~ Antibiotic Timeout Antibiotic Ordered?: No Subjective Patient seen and examined today. Mentioned that he feels a lot better. On room air. Strongly advised to quit meth abuse. Family-older brother at the bedside. Educated about LifeVest Objective Vital Signs Date Time Temp Pulse Resp B/P (MAP) Pulse Ox O2 Delivery O2 Flow Rate FiO2 09/09/24 10:00 98.8 104 20 106/76 (86) 94 Room Air 09/09/24 08:00 1.0 N/A Result Diagram: 09/09/24 0652 09/09/24 0652 General: Alert, awake, oriented to time place person. Not in acute distress. HEENT: No pallor, no icterus. Jugular venous distention is seen No carotid upstroke, Cardiovascular system: Regular rate and rhythm. First and second heart sound are heard. Pansystolic murmur is present in mitral area two to 3/6 intensity. PSM and tricuspid area 2/6. No rubs Respiratory system: Bilateral vesicular breath sounds are heard. Bilateral basal crepitations present. No expiratory wheezing Gastrointestinal: Tender hepatomegaly is present. Soft, nondistended, no rigidity, no guarding, no rebound tenderness Extremities: Clubbing present, 1+ edema, no cyanosis Central nervous system: No function neurological deficits Skin: warm and dry Assessment Assessment This 64-year-old male with a past medical history of meth induced cardiomyopathy, heart failure with reduced ejection fraction presented to the ER with a chief complaint of shortness of breaths. Initially required vasopressors for hypotension and so was in the ICU. 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 Blood pressure is in 120s. WBC counts are elevated. Lactic acid is elevated 3.9 on yesterday and troponins were mildly elevated in 140s and proBNP is . Chest x-ray showing cardiomegaly and bilateral pulmonary congestion Echocardiogram showed cardiomyopathy with left ventricle ejection fraction of 10%, RVSP of 49. Received norepinephrine, Zosyn, IV normal saline 1 L bolus and discontinued Zosyn and norepinephrine Started on Lasix 40 mg p.o. daily in view of On home medications of aspirin, carvedilol, Lasix, gabapentin, lisinopril, spironolactone We started carvedilol 2.5 mg, spironolactone 25 mg on today and lisinopril 2.5 mg p.o. daily on tomorrow morning we will hold for low blood pressures. On 09/09/2024: Off Levophed. Blood pressure stable. Continue Lasix 40 mg IV daily, Coreg 3.125 mg p.o. b.i.d., lisinopril 2.5 mg p.o. daily, spironolactone 25 mg p.o. daily. Will consider starting Jardiance tomorrow. Requested classification case manager to provide him with a LifeVest. 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 On thiamine, folic acid, multivitamin Strongly advised to quit meth abuse 6)Peripheral neuropathy On gabapentin 300 mg daily dose but in view of EGFR 40, started on 100 mg of gabapentin 7)Troponinemia likely secondary to NSTEMI versus type 2 [place] Troponins are elevated in 140s EKG showed sinus tachycardia. And it could be due to type 2 [place] secondary to cardiomyopathy with acute on chronic CHF 8)WALLY, prerenal Hypokalemia Hyperphosphatemia High anion gap metabolic acidosis With IV fluid resuscitation and norepinephrine, serum creatinine trended down to 1.79 from 2.4. Metabolic Acidosis is improving. Continue to monitor CMP On 09/09/24: WALLY likely due to renal tubular stasis secondary to acute HFrEF. BUN and creatinine improving. Metabolic acidosis resolved. Continue potassium replacement as per protocol. Phos slightly low than baseline continue to monitor. 9)Acute metabolic encephalopathy His mentation got improved. we think that acute metabolic encephalopathy is likely secondary to WALLY, metabolic acidosis, acute on chronic advanced heart failure. 10)Hyperbilirubinemia 11) Hyperbilirubinemia We thought differentials of hyperbilirubinemia and cholecystitis as acute CHF versus viral hepatitis Ultrasound abdomen CT abdomen suggests in favor of acalculous cholecystitis. We ordered the hepatitis-B and C panel in view of heavy IV methamphetamine use On 09/09/2024: Pending hep C and hepatitis-B woke up. LFTs, total bilirubin coming down. Transaminitis likely due to hypotension. CT shows acute cholecystitis changes and possible colitis but patient remains asymptomatic. So, no antibiotics started and no plan to consult surgeon Code status: Full code Diet: Heart healthy diet PT: Ordered Disposition: Requires LifeVest. Start SGLT2 inhibitors as tolerated Gaye Brenner MD Internal Medicine Resident, PGY 2 Addendum anasarca, poss 2 to combination of chf, poss liver cirrhosis poss liver cirrhosis; check pt/inr; US showing nodular liver; hepatits panel chf with severe syst dysfunction, had nsvt, life vest ordered Date of Service: September 09, 2024 Billing Provider: RODERICK MILLER MD Common Visit Codes: [id number] INP/OBS CARE(HIGH) GAYE BRENNER RES September 09, 2024 17:25 RODERICK MILLER MD September 09, 2024 19:26
[2024-09-09] MEDS ORDERED: magnesium Cl slow-release 64mg tablet PO PRN (18:35)
[2024-09-10 02:00] VITALS: BP 94/57; PULSE 76; RESP 12; TEMP 97.9; O2SAT 99
[2024-09-10] MEDS: Neutra Phos packet PO PRN (05:06)
[2024-09-10 06:00] VITALS: BP 84/35; PULSE 89; RESP 18; TEMP 96.9; O2SAT 90
[2024-09-10 07:18] LABS: BASOPHILS % (AUTO) 0.6 % (0-1); EOSINOPHILS # (AUTO) 0.2 X10'3 (0-0.9); EOSINOPHILS % (AUTO) 2.9 % (0-6); HEMATOCRIT 44.2 % (42.0-52.0); HEMOGLOBIN 14.6 g/dl (14.0-17.9); LYMPHOCYTES # (AUTO) 1.2 X10'3 (1.1-4.8); MEAN CORPUSCULAR HEMOGLOBIN 28.9 PG (27.0-31.0); MEAN CORPUSCULAR VOLUME 87.6 FL (78-98); MEAN PLATELET VOLUME 8.1 FL (7.4-10.4); MONOCYTES # (AUTO) 0.8 X10'3 (0-0.9); MONOCYTES % (AUTO) 10.2 % (2-12); NEUTROPHILS # (AUTO) 5.7 X10'3 (1.8-7.7); NEUTROPHILS % (AUTO) 71.3 % (42-75); PLATELET COUNT 220 X10'3 (140-440); RED BLOOD COUNT 5.05 X10'6 (4.70-6.10); RED CELL DISTRIBUTION WIDTH 16.1 % (11.5-14.5); WHITE BLOOD COUNT 7.9 X10'3 (4.5-11.0)
[2024-09-10 07:26] LABS: INR 1.2 INR; PROTHROMBIN TIME 12.5 SECONDS (9.0-12.0)
[2024-09-10 07:35] LABS: ALANINE AMINOTRANSFERASE 209 U/L (12-78); ALBUMIN 2.3 G/DL (3.4-5.0); ALBUMIN/GLOBULIN RATIO 0.8 (1.1-1.5); ALKALINE PHOSPHATASE 87 IU/L (46-116); ANION GAP 6 (8-16); ASPARTATE AMINO TRANSFERASE 157 U/L (10-37); BILIRUBIN,TOTAL 0.9 MG/DL (0.1-1.0); BLOOD UREA NITROGEN 29 MG/DL (7-18); CALCIUM 7.7 MG/DL (8.5-10.1); CHLORIDE 104 MMOL/L (99-107); CREATININE 1.26 MG/DL (0.60-1.10); GLUCOSE 130 MG/DL (70-104); PHOSPHORUS 2.8 MG/DL (2.3-4.5); POTASSIUM 3.7 MMOL/L (3.5-5.1); SODIUM 138 MMOL/L (135-145); TOTAL CARBON DIOXIDE 27.8 MMOL/L (24-32); TOTAL PROTEIN 5.2 G/DL (6.4-8.2); eCRCL 59 ML/MIN; eGFR 58 ML/MIN
[2024-09-10] MEDS: magnesium hydroxide 30ml (MOM) UD suspension PO PRN (08:00)
[2024-09-10 08:04] VITALS: BP 97/67; PULSE 83; RESP 18; O2SAT 93
== END 2024-09-10 10:03 | disposition left against medical advice (07) | DRG 280 ==
LOC: EDBD 17:50 → ER 17:50 → CICU 2S 19:42 → PCU 3S 09-08 19:35
PROVIDERS: ADMIT Internal Medicine Sleep Medicine; ATTEND Internal Medicine Sleep Medicine
PROC: BW211ZZ Computerized Tomography (CT Scan) of Abdomen and Pelvis using Low Osmolar Contrast (ICD-10-PCS; principal; 2024-09-07)
DX: I50.23 Acute on chronic systolic (congestive) heart failure (principal); G93.41 Metabolic encephalopathy; I21.A1 Myocardial infarction type 2; R57.0 Cardiogenic shock; N17.9 Acute kidney failure, unspecified; E87.20 Acidosis, unspecified; I42.0 Dilated cardiomyopathy; F15.10 Other stimulant abuse, uncomplicated; I34.0 Nonrheumatic mitral (valve) insufficiency; R74.01 Elevation of levels of liver transaminase levels; K82.4 Cholesterolosis of gallbladder; I27.21 Secondary pulmonary arterial hypertension; G62.9 Polyneuropathy, unspecified; E87.6 Hypokalemia; E83.39 Other disorders of phosphorus metabolism; E80.6 Other disorders of bilirubin metabolism; Z86.16 Personal history of COVID-19; Z91.148 Patient's other noncompliance with medication regimen for other reason; Z79.899 Other long term (current) drug therapy; Z53.29 Procedure and treatment not carried out because of patient's decision for other reasons
CPT/HCPCS: 36415; 36600; 71045; 71250; 74176; 76700; 80053; 80305; 81001; 82550; 82565; 82803; 82948; 83605; 83690; 83735; 83880; 84100; 84132; 84145; 84484; 85018; 85025; 85610; 86705; 86803; 87040; 87081; 87088; 87340; 87522; 93005; 93306; A4338; A4615; A6258; A6449; G0378; J1644; J1940; J2543; J7030; J7040

== ENCOUNTER 2024-09-10 10:53 | Emergency (ER) | payer MEDICAID ==
[~2024-09-10 10:53] MED LIST changes: +NO HOME MEDS
[2024-09-10 11:09] VITALS: TEMP 98.6
--- NOTE | 2024-09-10 11:17 | Physician Documentation ---
History of Present Illness ~ General Chief Complaint: See Chief Complaint Stated Complaint: READMIT Time Seen by MD: 11:03 OK to notify your PCP?: Yes Source: patient, RN/MD, RN notes reviewed, old records Mode of Arrival: POV Exam Limitations: no limitations History of Present Illness Initial Comments This patient is a 64 y/o male who presents to ED with chest pain. Patient was seen and evaluated on 09/07/24 for altered mental status. Patient was evaluated and bedside US showed that patient was suffering from heart failure with an EF of 10%. Patient was treated with Levo after which his mentation and blood pressure improved, and at time of that exam he was denying any chest pain or shortness of breath. Additional history obtained from family who stated that patient has a history of methamphetamine use. He was ultimately admitted to ICU for treatment of his heart failure, and was due to have a life vest placed prior to discharge. Unfortunately, patient left AMA from the ICU today in order to smoke. He returns today stating he is having chest pain once again and that his heart isnt good. Patient denies any other associated symptoms at this time. Patient denies any other alleviating or exacerbating factors. Medication Reconciliation Allergies: Coded Allergies: No Known Allergies (Unverified , 09/10/24) Miscellaneous Medications Home Med List (No Home Medications), (Reported) Discontinued Medications Aspirin* (Aspirin*), 1 TAB PO QPM, (Reported) Discontinued Reason: Other Carvedilol (Carvedilol), 1 TAB PO BID, (Reported) Discontinued Reason: Other Furosemide (Furosemide), 1 TAB PO BID, (Reported) Discontinued Reason: Other Gabapentin (Neurontin), 1 CAP PO QPM, (Reported) Discontinued Reason: Other Lisinopril (Lisinopril), 1 TAB PO DAILY, (Reported) Discontinued Reason: Other Spironolactone (Spironolactone), 1 TAB PO DAILY, (Reported) Discontinued Reason: Other Past Medical History Past Medical History: *CARDIOVASCULAR*, Coronary Artery Disease, Congestive Heart Failure, Hypertension, Chronic Back Pain Past Surgical History: noncontributory Patient History: Patient reports no known family medical history. Smoking Status: Current every day smoker Alcohol Use: None Drug Use: methamphetamine Review of Systems All Other Systems at this time: Reviewed and Negative Physical Exam Physical Exam Vital Signs: RN Vital Signs have been reviewed: Yes, Temperature: 98.6, Heart Rate: 55, Respiratory Rate: 22, BP: 97/74, Pulse Oximetry: 99 Oxygen Flow Rate: 0 Physical Exam General: The patient is well developed, well nourished, nontoxic appearing and is in no acute distress. Skin: Gail, warm and dry with no rashes. HEENT: Head was normocephalic and atraumatic. Eyes - pupils equal, round, reactive to light and accommodation. Extraocular movements were intact. Conjunctivae were nonicteric. The mouth and oropharynx were clear with moist mucous membranes. There were no pharyngeal exudates or erythema. Neck: Supple and nontender. There was no jugular venous distention, lymphaden opathy, thyromegaly or masses. Chest: Clear to auscultation bilaterally without wheezes, rales or rhonchi. No accessory muscle use. No dullness to percussion. Heart: Rate regular and rhythmic. S1, S2. No murmurs. Palpation of the chest wall was normal. No rubs or thrills. Abdomen: Soft, nontender and nondistended. Positive bowel sounds. No guarding or rebound. No hepatosplenomegaly or palpable masses. Extremities: No cyanosis, clubbing or edema. The patient moves all extremities. Pulses were equal and symmetric. Neurologic: Cranial nerves II-XII were intact. Sensation was intact to light touch throughout. Motor strength was 5/5 in all four extremities. Deep tendon reflexes were intact in both upper and lower extremities. Psychologic: The patient was oriented to person, place and time. The patient demonstrated appropriate judgement and insight. Progress Results/Orders Reviewed/noted all lab results: Yes Results/Orders Orders - FABIANO BARRIENTOS MD Electrocardiogram (09/10/24 ) Electrocardiogram (09/10/24 11:15) Completed Orders - FABIANO BARRIENTOS MD Electrocardiogram (09/10/24 ) Cbc/Diff (09/10/24 12:21) MG (09/10/24 12:21) Drug Screen, Urine (09/10/24 12:21) BMP (09/10/24 12:21) Hs Troponin I W Calculations (09/10/24 14:12) Carvedilol Tablet (Coreg Tablet) (09/10/24 15:30) Medications Received in ER Medications (Trade) Dose Ordered Sig/Keila Route PRN Reason Start Time Stop Time Status Last Admin Dose Admin (Coreg tablet) 3.125 mg ONCE ONCE PO 09/10/24 15:30 09/10/24 15:35 DC 09/10/24 15:42 3.125 MG Vital Signs 09/10/24 09/10/24 09/10/24 09/10/24 11:09 11:45 12:00 12:07 Temp 98.6 Pulse 55 99 75 Resp 22 17 15 B/P (MAP) 97/74 112/80 (91) 104/71 (82) Pulse Ox 99 99 100 O2 Flow Rate 0 0 0 09/10/24 09/10/24 09/10/24 09/10/24 13:03 13:30 13:49 14:45 Pulse 80 91 87 85 Resp 18 16 14 15 B/P (MAP) 104/86 (92) 90/66 (74) 98/59 (72) 94/75 (81) Pulse Ox 100 94 99 96 O2 Flow Rate 0 0 0 0 09/10/24 09/10/24 15:20 15:41 Pulse 95 87 Resp 14 16 B/P (MAP) 95/68 (77) 109/65 (80) Pulse Ox 96 95 O2 Flow Rate 0 0 Laboratory Tests Test 09/10/24 12:46 09/10/24 12:57 White Blood Count 7.7 Red Blood Count 5.27 Hemoglobin 15.3 Hematocrit 46.4 Mean Corpuscular Volume 88.1 Mean Corpuscular Hemoglobin 28.9 Mean Corpuscular Hemoglobin Concent 32.9 L Red Cell Distribution Width 16.3 H Platelet Count 239 Mean Platelet Volume 8.2 Neutrophils (%) (Auto) 71.6 Lymphocytes (%) (Auto) 13.2 L Monocytes (%) (Auto) 12.1 H Eosinophils (%) (Auto) 2.4 Basophils (%) (Auto) 0.7 Neutrophils # (Auto) 5.5 Lymphocytes # (Auto) 1.0 L Monocytes # (Auto) 0.9 Eosinophils # (Auto) 0.2 Basophils # (Auto) 0.1 CBC Comment Sodium Level 132 L Potassium Level 4.0 Chloride Level 98 L Carbon Dioxide Level 29.1 Anion Gap 5 L Blood Urea Nitrogen 26 H Creatinine 1.17 H Estimated GFR/1.73 m2 63 BUN/Creatinine Ratio 22.2 H Glucose Level 68 L Calcium Level 8.2 L Magnesium Level 2.2 Troponin I High Sensitivity 52 Troponin I High Sens Percent Delta 64 Troponin I Hi Sens Absolute Change -96 Albumin 2.7 L Chemistry Comments Urine Opiates Screen Negative Urine Methadone Screen Negative Urine Fentanyl Screen Negative Urine Barbiturates Screen Negative Urine Phencyclidine Screen Negative Urine Amphetamines Screen Positive Urine Benzodiazepines Screen Negative Urine Cocaine Screen Negative Urine Cannabinoids Screen Negative Drug Screen Comment Re-Evaluation Re-Evaluation : Re-Evaluation: Improved Progress Patient was seen and examined. Patient is given reassurance. Patient left AMA. The plan was to discharge him today and arrangements have been made for a life vest. After a few calls to the resident service patient is outpatient medications were prescribed. Patient's blood pressure was a bit low we suggest potentially holding Lasix for low blood pressure it is more important to have a low heart rate as well. Currently his heart rates in the 90s. Additional dose of Coreg was given the patient was ultimately discharged home. Patient's was warned about any stimulants including smoking as well as additional methamphetamine. Patient understood my concerns. Patient's laboratory work was reassuring CBC was within normal limits no anemia or leukocytosis. Chemistry was also reassuring slight increase in BUN of 26 and creatinine of 1.17 and a sodium one due to otherwise within normal limits tox screen still remains positive for methamphetamine. Patient was then discharged home. secured entrance monitor interpretation shows normal sinus rhythm heart rate 80s, no ectopy, normal, my interpretation. Pulse oximetry monitor interpretation shows normal oxygenation 99% room air, normal, my interpretation. 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 EKG Date and Time:09/10/24 1123 Electronically Signed by: BRONSON NESS MD Date and Time: 09/10/24 1511 NO PRIMARY CARE PROVIDER~ cc: ~ Heart Score: Heart Score Response (Comments) Value EKG Normal 0 Age 45-64 1 Risk Factors 1 or 2 risk factors 1 Troponin Normal limit 0 Total 2 Medical Decision Making Additional info obtained from: old records Departure Time of Disposition: 15:37 Disposition: 01 HOME / SELF CARE / HOMELESS Impression: Primary Impression: Chest pain Qualified Codes: R07.9 - Chest pain, unspecified Additional Impressions: Hyponatremia Methamphetamine cardiomyopathy Condition: Stable Discharge Instructions: Chest Pain Observation, Nonspecific Chest Pain, Adult Additional Instructions: Return to ER for any new or worsening symptoms. Otherwise follow up with your primary care provider for close follow up. Referrals: NO PRIMARY CARE PROVIDER (PCP) Education Educated: Patient Educated regarding: diagnosis, treatment, need for follow up Signature Scribe Signature: No scribed Attestation: The note accurately reflects work and decisions made by me.Fabiano Barrientos MD 09/10/24 11:17 FABIANO BARRIENTOS MD Sep 10, 2024 11:17
--- NOTE | 2024-09-10 11:25 | ELECTROCARDIOGRAPH REPORT ---
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
[2024-09-10 13:16] LABS: BASOPHILS # (AUTO) 0.1 X10'3 (0-0.2); BASOPHILS % (AUTO) 0.7 % (0-1); EOSINOPHILS # (AUTO) 0.2 X10'3 (0-0.9); EOSINOPHILS % (AUTO) 2.4 % (0-6); HEMATOCRIT 46.4 % (42.0-52.0); HEMOGLOBIN 15.3 g/dl (14.0-17.9); LYMPHOCYTES % (AUTO) 13.2 % (21-51); MEAN CORPUSCULAR HEMOGLOBIN 28.9 PG (27.0-31.0); MEAN CORPUSCULAR HGB CONC 32.9 g/dL (33.0-36.5); MEAN CORPUSCULAR VOLUME 88.1 FL (78-98); MEAN PLATELET VOLUME 8.2 FL (7.4-10.4); MONOCYTES # (AUTO) 0.9 X10'3 (0-0.9); MONOCYTES % (AUTO) 12.1 % (2-12); NEUTROPHILS # (AUTO) 5.5 X10'3 (1.8-7.7); NEUTROPHILS % (AUTO) 71.6 % (42-75); PLATELET COUNT 239 X10'3 (140-440); RED BLOOD COUNT 5.27 X10'6 (4.70-6.10); RED CELL DISTRIBUTION WIDTH 16.3 % (11.5-14.5); WHITE BLOOD COUNT 7.7 X10'3 (4.5-11.0)
[2024-09-10 13:24] LABS: ALBUMIN 2.7 G/DL (3.4-5.0); BLOOD UREA NITROGEN 26 MG/DL (7-18); BUN/CREATININE RATIO 22.2 (10.0-20.0); CALCIUM 8.2 MG/DL (8.5-10.1); CHLORIDE 98 MMOL/L (99-107); CREATININE 1.17 MG/DL (0.60-1.10); GLUCOSE 68 MG/DL (70-104); MAGNESIUM 2.2 MG/DL (1.5-2.4); TOTAL CARBON DIOXIDE 29.1 MMOL/L (24-32); eGFR 63 ML/MIN
[2024-09-10 13:29] LABS: ANION GAP 5 (8-16); SODIUM 132 MMOL/L (135-145)
[2024-09-10 13:35] LABS: URINE AMPHETAMINE SCREEN POSITIVE (Neg); URINE BARBITUATE SCREEN NEGATIVE (Neg); URINE BENZODIAZEPINES SCREEN NEGATIVE (Neg); URINE CANNABINOID SCREEN NEGATIVE (Neg); URINE COCAINE SCREEN NEGATIVE (Neg); URINE METHADONE SCREEN NEGATIVE (Neg); URINE OPIATE SCREEN NEGATIVE (Neg); URINE PHENCYCLIDINE SCREEN NEGATIVE (Neg)
[2024-09-10 15:41] VITALS: BP 109/65; PULSE 87; RESP 16; O2SAT 95
[2024-09-10] MEDS: carVEDilol 3.125mg tablet PO ONE (15:42)
== END 2024-09-10 15:49 | disposition home or self-care (01) ==
LOC: ER 10:54
DX: R07.9 Chest pain, unspecified (principal); E87.1 Hypo-osmolality and hyponatremia; I11.0 Hypertensive heart disease with heart failure; I50.9 Heart failure, unspecified; I42.9 Cardiomyopathy, unspecified; I25.10 Atherosclerotic heart disease of native coronary artery without angina pectoris; F17.200 Nicotine dependence, unspecified, uncomplicated; F15.90 Other stimulant use, unspecified, uncomplicated
CPT/HCPCS: 36415; 80048; 80305; 83735; 84484; 85025; 93005; 99285

== ENCOUNTER 2024-09-12 23:28 | Emergency (ER) | payer MEDICAID ==
[~2024-09-12] VITALS: Ht 182.9 cm; Wt 79.5 kg
[~2024-09-12 23:28] MED LIST changes: -ASPI-1264 PO; -CARV3.122 PO; -FURO40TA4 PO; -GABA300C PO; -LISI2.5T14 PO; -SPIR25TA5 PO
--- NOTE | 2024-09-12 23:50 | ELECTROCARDIOGRAPH REPORT ---
[facility] Test Date: 2024-09-12 Test Time: 23:47:44 Pat Name: SUKHJINDER RIZO Department: [facility]-ER Patient ID: [facility]-[id number] Room: Gender: M Utilization Review Rn: : 1960 Requested By: DORIAN HIGHTOWER Order Number: [id number] Reading MD: Dr. Fabiano Barrientos Measurements Intervals [place] Rate: 100 P: 87 [place]: 180 QRS: 260 QRSD: 123 T: 69 QT: 395 QTc: 510 Interpretive Statements Sinus tachycardia Nonspecific IVCD with LAD Probable lateral infarct, age indeterminate Borderline ST elevation, anterior leads Electronically Signed On 09-14-2024 6:35:[address] Fabiano Barrientos Please click the below link to view image of tracing.
[2024-09-12 23:55] LABS: BASOPHILS # (AUTO) 0.1 X10'3 (0-0.2); BASOPHILS % (AUTO) 1.1 % (0-1); EOSINOPHILS # (AUTO) 0.3 X10'3 (0-0.9); EOSINOPHILS % (AUTO) 3.4 % (0-6); HEMATOCRIT 42.6 % (42.0-52.0); HEMOGLOBIN 14.2 g/dl (14.0-17.9); LYMPHOCYTES # (AUTO) 1.3 X10'3 (1.1-4.8); LYMPHOCYTES % (AUTO) 16.6 % (21-51); MEAN CORPUSCULAR HEMOGLOBIN 29.3 PG (27.0-31.0); MEAN CORPUSCULAR HGB CONC 33.3 g/dL (33.0-36.5); MEAN CORPUSCULAR VOLUME 87.8 FL (78-98); MEAN PLATELET VOLUME 7.7 FL (7.4-10.4); MONOCYTES # (AUTO) 0.7 X10'3 (0-0.9); MONOCYTES % (AUTO) 8.6 % (2-12); NEUTROPHILS # (AUTO) 5.3 X10'3 (1.8-7.7); NEUTROPHILS % (AUTO) 70.3 % (42-75); PLATELET COUNT 257 X10'3 (140-440); RED BLOOD COUNT 4.86 X10'6 (4.70-6.10); RED CELL DISTRIBUTION WIDTH 16.6 % (11.5-14.5); WHITE BLOOD COUNT 7.6 X10'3 (4.5-11.0)
[2024-09-13 00:17] LABS: ALBUMIN 2.7 G/DL (3.4-5.0); ANION GAP 11 (8-16); BLOOD UREA NITROGEN 26 MG/DL (7-18); BUN/CREATININE RATIO 20.8 (10.0-20.0); CALCIUM 8.1 MG/DL (8.5-10.1); CHLORIDE 108 MMOL/L (99-107); CREATININE 1.25 MG/DL (0.60-1.10); GLUCOSE 140 MG/DL (70-104); POTASSIUM 4.7 MMOL/L (3.5-5.1); PRO BRAIN NATRIURETIC PEPTIDE 9499 PG/ML (0-125); SODIUM 139 MMOL/L (135-145); TOTAL CARBON DIOXIDE 20.5 MMOL/L (24-32); eCRCL 67 ML/MIN; eGFR 59 ML/MIN
--- NOTE | 2024-09-13 00:31 | RADIOLOGY REPORT ---
CHEST RADIOGRAPH Indication: CP Technique: Single frontal view of the chest was obtained Comparison: DI CHEST,SINGLE VIEW on DOS: 09/07/24 Findings/ IMPRESSION: Moderate cardiomegaly otherwise no active cardiopulmonary disease.
--- NOTE | 2024-09-13 03:28 | Physician Documentation ---
History of Present Illness ~ Chief Complaint: Shortness of Breath Stated Complaint: SHORT OF BREATH Time Seen by MD: 03:17 Mode of Arrival: EMS HPI Patient presents to the emergency room with chief complaint of shortness of breath and abdominal pain. He was admitted here recently and left against medical advice and again in the emergency room on the for chest pain and lef t against medical advice again after Dr. Barrientos had work to arrange for his medication life vest. He was noted to be positive for amphetamines at that time. Patient endorses constipation. No fevers. Medication Reconciliation Allergies: Coded Allergies: No Known Allergies (Unverified , 09/12/24) Miscellaneous Medications Home Med List (No Home Medications), (Reported) Discontinued Medications Aspirin* (Aspirin*), 1 TAB PO QPM, (Reported) Discontinued Reason: Other Carvedilol (Carvedilol), 1 TAB PO BID, (Reported) Discontinued Reason: Other Furosemide (Furosemide), 1 TAB PO BID, (Reported) Discontinued Reason: Other Gabapentin (Neurontin), 1 CAP PO QPM, (Reported) Discontinued Reason: Other Lisinopril (Lisinopril), 1 TAB PO DAILY, (Reported) Discontinued Reason: Other Spironolactone (Spironolactone), 1 TAB PO DAILY, (Reported) Discontinued Reason: Other Past Medical History Past Medical History: *CARDIOVASCULAR*, Coronary Artery Disease, Congestive Heart Failure, Hypertension, Chronic Back Pain Past Surgical History: noncontributory Patient History: Patient reports no known family medical history. Alcohol Use: None Drug Use: methamphetamine Review of Systems ROS All review of systems negative except as per HPI Physical Exam Vital Signs: Temperature: 97.8, Source: Oral, Heart Rate: 80, Respiratory Rate: 18, BP: 107/74, Pulse Oximetry: 99, Weight: 79.550 Oxygen Flow Rate: 0 Physical Exam General: Patient is sleeping heavily laying flat in no acute distress and easily arousable Head: Normocephalic and atraumatic. Eyes: Conjunctival normal. EOMI. PERRL. ENT: Mucous membranes moist. Neck: Supple, trachea is midline. Chest: Clear to auscultation bilaterally without rales, rhonchi, or wheezes. There is no accessory muscle use or retractions. Cardiac: RRR without murmurs, gallops, or rubs. Abd: Soft, nondistended, mild diffuse abdominal tenderness without peritonitis Progress Results/Orders Results/Orders Orders - GODFREY HIGHTOWER MD Chest,Single View (09/12/24 23:41) Monitor (09/12/24 23:41) Saline Lock (09/12/24 23:41) Oxygen (09/12/24 23:41) Completed Orders - GODFREY HIGHTOWER MD Chest,Single View (09/12/24 23:41) Cbc/Diff (09/12/24 23:41) BMP (09/12/24 23:41) PBNP (09/12/24 23:41) Electrocardiogram (09/12/24 23:41) Hs Troponin I W Calculations (09/12/24 23:41) Hs Troponin I W Calculations (09/13/24 01:41) Hs Troponin I W Calculations (09/13/24 02:41) Vital Signs 09/12/24 09/12/24 09/12/24 09/13/24 23:31 23:39 23:39 01:45 Temp 97.8 Pulse 99 98 88 Resp 22 22 22 18 B/P (MAP) 115/92 104/63 (77) 118/54 (75) Pulse Ox 100 100 99 O2 Flow Rate 0 09/13/24 02:54 Pulse 80 Resp 18 B/P (MAP) 107/74 (85) Pulse Ox 99 O2 Flow Rate 0 Laboratory Tests Test 09/12/24 23:47 09/13/24 01:52 09/13/24 02:32 White Blood Count 7.6 Red Blood Count 4.86 Hemoglobin 14.2 Hematocrit 42.6 Mean Corpuscular Volume 87.8 Mean Corpuscular Hemoglobin 29.3 Mean Corpuscular Hemoglobin Concent 33.3 Red Cell Distribution Width 16.6 H Platelet Count 257 Mean Platelet Volume 7.7 Neutrophils (%) (Auto) 70.3 Lymphocytes (%) (Auto) 16.6 L Monocytes (%) (Auto) 8.6 Eosinophils (%) (Auto) 3.4 Basophils (%) (Auto) 1.1 H Neutrophils # (Auto) 5.3 Lymphocytes # (Auto) 1.3 Monocytes # (Auto) 0.7 Eosinophils # (Auto) 0.3 Basophils # (Auto) 0.1 CBC Comment Sodium Level 139 Potassium Level 4.7 Chloride Level 108 H Carbon Dioxide Level 20.5 L Anion Gap 11 Blood Urea Nitrogen 26 H Creatinine 1.25 H Estimated GFR/1.73 m2 59 BUN/Creatinine Ratio 20.8 H Glucose Level 140 H Calcium Level 8.1 L Troponin I High Sensitivity 70 65 60 Troponin I High Sens Percent Delta 34 7 7 Troponin I Hi Sens Absolute Change 18 -5 -5 Pro-B-Type Natriuretic Peptide 9499 H Albumin 2.7 L Chemistry Comments Medical Decision Making Findings Patient presented to the emergency room with abdominal pain and shortness of breath as per HPI. Differentials include but are not limited to constipation, intra-abdominal infection, malingering, ascites. No elevation of white blood cell count and patient is sleeping comfortably and I do not feel he requires CT scan. Patient has terrible ejection fraction however he is lying flat sleeping oxygenating well and he had not feel he requires admission for diuresis. Conservative management discussed as well as ER precautions Departure Disposition: HOME / SELF CARE / HOMELESS Impression: Primary Impression: Difficulty breathing Additional Impression: Constipation Condition: Stable Discharge Instructions: Constipation, Adult, [id number] Additional Instructions: Follow up with your doctor for re-evaluation and medication adjustments and and additional referrals Referrals: NO PRIMARY CARE PROVIDER (PCP) Prescriptions Polyethylene Glycol 3350* (Miralax*) 1 Packet Packet 1 PKT PO DAILY for constipation, #30 PKT dissolve in water Prov: GODFREY HIGHTOWER MD 09/13/24 Education Educated: Patient Educated regarding: treatment, need for follow up Signature Scribe Signature: No scribe Attestation: The note accurately reflects work and decisions made by me.Godfrey Hightower MD 09/13/24 03:36 GODFREY HIGHTOWER MD Sep 13, 2024 03:28
[2024-09-13] MEDS ORDERED: POLY17PO10 PO (03:36)
[2024-09-13 04:11] VITALS: BP 132/80; PULSE 80; RESP 18; TEMP 98.1; O2SAT 99
== END 2024-09-13 04:13 | disposition home or self-care (01) ==
LOC: ER 23:28
DX: R06.02 Shortness of breath (principal); K59.00 Constipation, unspecified; I11.0 Hypertensive heart disease with heart failure; I50.9 Heart failure, unspecified; I25.10 Atherosclerotic heart disease of native coronary artery without angina pectoris
CPT/HCPCS: 36415; 71045; 80048; 83880; 84484; 85025; 93005; 99285